=== PATIENT | male | born 1970 | race Caucasian/White ===

== ENCOUNTER 2020-08-23 23:28 | Emergency (ER) | payer OTHER ==
[~2020-08-23] VITALS: Ht 167.6 cm; Wt 72.6 kg
[~2020-08-23 23:28] MED LIST: CARISOPRODOL 3350 MG PO; CLONAZEPAM PO; HYDROCODON-ACE1 EAC1
[2020-08-23] MEDS ORDERED: DEPAKOTE250 MG PO ×2 (23:35→23:36)
[2020-08-24 05:35] VITALS: BP 113/70
== END 2020-08-24 05:36 | disposition home or self-care (01) ==
LOC: ER 23:28
DX: F10.921 Alcohol use, unspecified with intoxication delirium (principal); R10.13 Epigastric pain; F32.9 Major depressive disorder, single episode, unspecified; F41.9 Anxiety disorder, unspecified; Z79.899 Other long term (current) drug therapy